=== PATIENT | male | born 1995 | race Caucasian/White ===

== ENCOUNTER 2017-05-15 20:19 | Emergency (ER) | payer BC, MEDICAID, OTHER ==
[~2017-05-15] VITALS: Ht 185.4 cm; Wt 97.5 kg
[~2017-05-15 20:19] MED LIST: OMEP20CA10 PO
[2017-05-16 01:14] VITALS: BP 120/75
== END 2017-05-16 01:21 | disposition home or self-care (01) ==
LOC: ER 20:19
DX: R06.02 Shortness of breath (principal); Z88.0 Allergy status to penicillin; Z88.1 Allergy status to other antibiotic agents
CPT/HCPCS: 71010; 93005; 99284; Z7610

== ENCOUNTER 2017-07-29 07:06 | Emergency (ER) | payer OTHER ==
[~2017-07-29] VITALS: Ht 185.4 cm; Wt 100.0 kg
[2017-07-29] MEDS ORDERED: DIPHENHYDRAMINE 50MG/ML VIAL IM ONE (09:45)
[2017-07-29] MEDS ORDERED: FAMOTIDINE 20MG TABLET PO ONE (10:00)
[2017-07-29 10:07] VITALS: BP 133/70
[2017-07-30] MEDS ORDERED: FAMOTIDINE 20MG/2ML VIAL IV SCH (09:00)
== END 2017-07-29 10:22 | disposition home or self-care (01) ==
LOC: ER 07:49
DX: T78.40XA Allergy, unspecified, initial encounter (principal); R21 Rash and other nonspecific skin eruption; R03.0 Elevated blood-pressure reading, without diagnosis of hypertension; X58.XXXA Exposure to other specified factors, initial encounter; Z88.0 Allergy status to penicillin; Z88.1 Allergy status to other antibiotic agents
CPT/HCPCS: 96372; 99283; J1200

== ENCOUNTER 2018-04-03 14:45 | Emergency (ER) | payer MEDICAID ==
[~2018-04-03] VITALS: Ht 188 cm; Wt 85.0 kg
[2018-04-03] MEDS ORDERED: IBUPROFEN 600MG TABLET PO ONE (17:45)
[2018-04-03] MEDS ORDERED: LORAZEPAM 1MG TABLET PO ONE (18:45)
[2018-04-03 20:20] VITALS: BP 113/70
== END 2018-04-03 20:22 | disposition home or self-care (01) ==
LOC: ER 15:49
DX: F41.9 Anxiety disorder, unspecified (principal); R06.00 Dyspnea, unspecified; Z88.0 Allergy status to penicillin; Z90.49 Acquired absence of other specified parts of digestive tract
CPT/HCPCS: 99283

== ENCOUNTER 2018-04-16 12:52 | Emergency (ER) | payer MEDICAID ==
[~2018-04-16] VITALS: Ht 188 cm; Wt 100.0 kg
[2018-04-16 13:53] LABS: CHLORIDE 108 mEq/L (98-107)
[2018-04-16 13:59] LABS: ETHANOL BLOOD < 10 mg/dL
[2018-04-16 14:45] LABS: BASOPHILS % 0.3 % (0.0-2.0); EOSINOPHILS % 0.5 % (0.0-5.0); HEMATOCRIT. 44.9 % (42.0-52.0); HEMOGLOBIN. 16.4 g/dL (14.0-18.0); LYMPHOCYTES % 10.4 % (20.0-50.0); MEAN CORPUSCULAR HEMOGLOBIN 27.7 pg (28.0-32.0); MEAN CORPUSCULAR VOLUME 76.1 fL (80.0-94.0); MEAN PLATELET VOLUME 8.5 fl (7.4-10.4); MONOCYTES % 7.6 % (2.0-8.0); NEUTROPHILS % 81.2 % (40.0-76.0); PLATELET 251 x1000/uL (130-400); RED CELL DISTRIBUTION WIDTH 13.7 % (11.6-14.6)
[2018-04-16 18:12] LABS: *AMPHETAMINES SCREEN URINE NEGATIVE (NEGATIVE); *BARBITURATES SCREEN URINE NEGATIVE (NEGATIVE); *BENZODIAZEPINES SCREEN URINE NEGATIVE (NEGATIVE); *COCAINE SCREEN URINE NEGATIVE (NEGATIVE); METHADONE URINE SCREEN NEGATIVE (NEGATIVE); OPIATES URINE SCREEN NEGATIVE (NEGATIVE); PHENCYCLIDINE URINE SCREEN NEGATIVE (NEGATIVE)
[2018-04-16 18:13] LABS: CANNABINOID URINE SCREEN NEGATIVE (NEGATIVE)
[2018-04-16] MEDS ORDERED: ALBUTEROL (0.083%) 2.5MG/3ML NEB HHN STA (18:55)
[2018-04-16] MEDS ORDERED: IPRATROPIUM BROMIDE (0.02%) 0.5MG/2.5ML NEB HHN STA (18:55)
[2018-04-16] MEDS ORDERED: FAMOTIDINE 20MG TABLET PO ONE (19:00)
[2018-04-16] MEDS ORDERED: KETOROLAC 30MG/ML VIAL IV ONE (20:30)
[2018-04-16] MEDS ORDERED: DEXAMETHASONE 10 MG/ML VIAL IV ONE (20:30)
[2018-04-16] MEDS ORDERED: LORAZEPAM 2MG/ML CPJ IV ONE (20:45)
[2018-04-16 22:42] VITALS: BP 130/87
== END 2018-04-16 22:44 | disposition home or self-care (01) ==
LOC: ER 13:20
DX: R06.00 Dyspnea, unspecified (principal); J35.9 Chronic disease of tonsils and adenoids, unspecified; F41.9 Anxiety disorder, unspecified; F45.8 Other somatoform disorders; K21.9 Gastro-esophageal reflux disease without esophagitis; J45.909 Unspecified asthma, uncomplicated; R09.82 Postnasal drip; Z88.0 Allergy status to penicillin; Z88.1 Allergy status to other antibiotic agents; Z79.899 Other long term (current) drug therapy
CPT/HCPCS: 36415; 70490; 71045; 80048; 80305; 85025; 93005; 94640; 96374; 96375; 99285; G0482; J1100; J1885; J2060; J7611; Z7610

== ENCOUNTER 2018-05-01 21:57 | Emergency (ER) | payer MEDICAID ==
[~2018-05-01] VITALS: Ht 177.8 cm; Wt 78.0 kg
[2018-05-02] MEDS ORDERED: HYDROXYZINE 25MG TABLET PO ONE (03:45)
[2018-05-02 05:00] VITALS: BP 115/73
== END 2018-05-02 05:20 | disposition home or self-care (01) ==
LOC: ER 21:57
DX: R06.00 Dyspnea, unspecified (principal); Z88.0 Allergy status to penicillin; Z88.3 Allergy status to other anti-infective agents
CPT/HCPCS: 93005; 99283

== ENCOUNTER 2018-05-10 00:57 | Emergency (ER) | payer MEDICAID ==
[~2018-05-10] VITALS: Ht 180.3 cm; Wt 81.6 kg
[2018-05-10 08:00] VITALS: BP 112/65
== END 2018-05-10 08:02 | disposition home or self-care (01) ==
LOC: ER 00:57
DX: T78.40XA Allergy, unspecified, initial encounter (principal); Z88.0 Allergy status to penicillin; Z88.1 Allergy status to other antibiotic agents; X58.XXXA Exposure to other specified factors, initial encounter
CPT/HCPCS: 99283

== ENCOUNTER 2019-10-12 05:14 | Emergency (ER) | payer MEDICAID ==
[~2019-10-12] VITALS: Ht 185.4 cm; Wt 129.0 kg
[~2019-10-12 05:14] MED LIST changes: -OMEP20CA10 PO; +OMEP20CA5 PO
[2019-10-12] MEDS ORDERED: SODIUM CHLORIDE 0.9% 1,000 ML IV ONE (06:34)
[2019-10-12] MEDS ORDERED: KETOROLAC 30MG/ML VIAL IV STA (06:34)
[2019-10-12 07:25] LABS: CHLORIDE 104 mEq/L (98-107)
[2019-10-12 07:29] LABS: CLARITY URINE CLEAR (CLEAR); COLOR URINE YELLOW (YELLOW); KETONES URINE NEGATIVE (NEGATIVE); LEUKOCYTE ESTERASE URINE NEGATIVE (NEGATIVE); NITRITE URINE NEGATIVE (NEGATIVE); OCCULT BLOOD URINE NEGATIVE (NEGATIVE); PH URINE 5.5 (4.5-8.0); PROTEIN URINE NEGATIVE (NEGATIVE); SPECIFIC GRAVITY URINE 1.021 (1.005-1.030); UROBILINOGEN URINE 0.2 E.U./dL (0.2-1.0)
[2019-10-12 07:34] LABS: BASOPHILS % 0.7 % (0.0-2.0); EOSINOPHILS % 4.6 % (0.0-5.0); HEMATOCRIT. 46.5 % (42.0-52.0); HEMOGLOBIN. 15.9 g/dL (14.0-18.0); MEAN CORPUSCULAR HEMOGLOBIN 26.4 pg (28.0-32.0); MEAN CORPUSCULAR VOLUME 77.2 fL (80.0-94.0); MEAN PLATELET VOLUME 8.3 fl (7.4-10.4); MONOCYTES % 10.8 % (2.0-8.0); NEUTROPHILS % 54.9 % (40.0-76.0); PLATELET 272 x1000/uL (130-400); RED BLOOD CELL COUNT 6.03 mill/uL (4.7-6.1); RED CELL DISTRIBUTION WIDTH 14.4 % (11.6-14.6)
[2019-10-12 10:43] VITALS: BP 131/81
== END 2019-10-12 10:48 | disposition home or self-care (01) ==
LOC: ER 05:14
DX: R10.9 Unspecified abdominal pain (principal); R11.0 Nausea; Z88.0 Allergy status to penicillin; Z88.1 Allergy status to other antibiotic agents; Z88.8 Allergy status to other drugs, medicaments and biological substances; Z90.49 Acquired absence of other specified parts of digestive tract
CPT/HCPCS: 36415; 74176; 80053; 81003; 83690; 85025; 96374; 99284; J1885; J7030; Z7610

== ENCOUNTER 2021-10-09 21:00 | Emergency (ER) | payer MEDICAID ==
[~2021-10-09] VITALS: Ht 185.4 cm; Wt 140.0 kg
[~2021-10-09 21:00] MED LIST changes: +OMEP20CA14 PO; -OMEP20CA5 PO
[2021-10-09 21:56] VITALS: BP 122/71
[2021-10-09 23:23] LABS: CHLORIDE 111 mEq/L (98-107)
[2021-10-09 23:26] LABS: BASOPHILS % 0.7 % (0.0-2.0); EOSINOPHILS % 2.4 % (0.0-5.0); HEMATOCRIT. 44.5 % (42.0-52.0); HEMOGLOBIN. 15.3 g/dL (14.0-18.0); LYMPHOCYTES % 32.4 % (20.0-50.0); MEAN CORPUSCULAR HEMOGLOBIN 26.3 pg (28.0-32.0); MEAN CORPUSCULAR VOLUME 76.4 fL (80.0-94.0); MEAN PLATELET VOLUME 7.7 fl (7.4-10.4); MONOCYTES % 10.4 % (2.0-8.0); NEUTROPHILS % 54.1 % (40.0-76.0); PLATELET 328 x1000/uL (130-400); RED BLOOD CELL COUNT 5.82 mill/uL (4.7-6.1)
== END 2021-10-10 00:32 | disposition home or self-care (01) ==
LOC: ER 21:00
DX: R07.89 Other chest pain (principal)
CPT/HCPCS: 36415; 71045; 80053; 83880; 84484; 85025; 93005; 99285

== ENCOUNTER 2021-10-28 08:36 | Emergency (ER) | payer MEDICAID ==
[~2021-10-28] VITALS: Ht 185.4 cm; Wt 109.0 kg
[2021-10-28] MEDS ORDERED: IBUPROFEN 600MG TABLET PO ONE (09:00)
[2021-10-28 09:36] VITALS: BP 143/81
[2021-10-28] MEDS ORDERED: BENZ-16 MT (09:53)
[2021-10-28] MEDS ORDERED: IBUP-2029 MT (09:53)
[2021-10-28] MEDS ORDERED: ALBU6.7H9 INH (09:53)
== END 2021-10-28 10:17 | disposition home or self-care (01) ==
LOC: ER 08:50
DX: B34.9 Viral infection, unspecified (principal); I10 Essential (primary) hypertension; Z13.9 Encounter for screening, unspecified; Z88.0 Allergy status to penicillin; Z20.822 Contact with and (suspected) exposure to COVID-19
CPT/HCPCS: 71045; 87426; 87804; 99284

== ENCOUNTER 2021-11-18 16:57 | Emergency (ER) | payer MEDICAID, OTHER ==
[~2021-11-18] VITALS: Ht 190.5 cm; Wt 120.0 kg
[~2021-11-18 16:57] MED LIST changes: +ALBU6.7H9 INH; +BENZ-16 MT; +IBUP-2029 MT
[2021-11-18 19:02] VITALS: BP 156/92
== END 2021-11-18 19:27 | disposition home or self-care (01) ==
LOC: ER 16:57
DX: G47.30 Sleep apnea, unspecified (principal); I49.9 Cardiac arrhythmia, unspecified; Z88.0 Allergy status to penicillin; Z98.890 Other specified postprocedural states
CPT/HCPCS: 71045; 93005; 99283

== ENCOUNTER 2021-11-29 19:21 | Emergency (ER) | payer OTHER ==
[~2021-11-29] VITALS: Ht 185.4 cm; Wt 97.5 kg
[2021-11-29 20:46] LABS: BASOPHILS % 0.3 % (0.0-2.0); EOSINOPHILS % 0.6 % (0.0-5.0); HEMATOCRIT. 48.8 % (42.0-52.0); HEMOGLOBIN. 17.6 g/dL (14.0-18.0); LYMPHOCYTES % 20.4 % (20.0-50.0); MEAN CORPUSCULAR HEMOGLOBIN 27.2 pg (28.0-32.0); MEAN CORPUSCULAR VOLUME 75.5 fL (80.0-94.0); MONOCYTES % 9.2 % (2.0-8.0); NEUTROPHILS % 69.5 % (40.0-76.0); PLATELET 294 x1000/uL (130-400); RED BLOOD CELL COUNT 6.47 mill/uL (4.7-6.1); RED CELL DISTRIBUTION WIDTH 14.6 % (11.6-14.6)
[2021-11-29 20:52] LABS: CHLORIDE 105 mEq/L (98-107)
[2021-11-29] MEDS ORDERED: LORAZEPAM 1MG TABLET PO ONE (21:00)
[2021-11-29 22:35] VITALS: BP 143/96
== END 2021-11-29 22:49 | disposition home or self-care (01) ==
LOC: ER 19:21
DX: R06.02 Shortness of breath (principal); F41.9 Anxiety disorder, unspecified; Z20.822 Contact with and (suspected) exposure to COVID-19; Z88.0 Allergy status to penicillin; Z90.49 Acquired absence of other specified parts of digestive tract
CPT/HCPCS: 36415; 71045; 80053; 84484; 85025; 87426; 93005; 99285

== ENCOUNTER 2022-10-19 19:39 | Emergency (ER) | payer MEDICAID, OTHER ==
[~2022-10-19] VITALS: Ht 185.4 cm; Wt 118.0 kg
[~2022-10-19 19:39] MED LIST changes: +ALBU6.7H3 INH; -ALBU6.7H9 INH
[2022-10-19 19:51] VITALS: BP 147/88
[2022-10-19] MEDS: BACITRACIN ZINC OINT UDPKT TOP ONE (22:15)
[2022-10-19] MEDS: ACETAMINOPHEN 325MG TABLET PO ONE (22:15)
[2022-10-19] MEDS: TETANUS, DIPHTHERIA, PERTUSSIS VAC/PF 0.5ML (>10YR OLD) IM ONE (22:15)
== END 2022-10-20 00:22 | disposition home or self-care (01) ==
LOC: ER 20:18
DX: S09.8XXA Other specified injuries of head, initial encounter (principal); W18.39XA Other fall on same level, initial encounter; Y93.89 Activity, other specified; Y92.89 Other specified places as the place of occurrence of the external cause; Y99.8 Other external cause status; F41.9 Anxiety disorder, unspecified; J45.909 Unspecified asthma, uncomplicated; Z90.49 Acquired absence of other specified parts of digestive tract; Z88.0 Allergy status to penicillin
CPT/HCPCS: 70450; 73130; 73560; 90471; 90715; 99284; Z7610

== ENCOUNTER 2023-04-21 01:03 | Emergency (ER) | payer MEDICAID, OTHER ==
[~2023-04-21] VITALS: Ht 185.4 cm; Wt 115.0 kg
[2023-04-21 01:51] VITALS: BP 104/71
[2023-04-21] MEDS ORDERED: SULF1TAB48 MT (08:44)
== END 2023-04-21 09:34 | disposition home or self-care (01) ==
LOC: ER 01:03
DX: L60.0 Ingrowing nail (principal); B35.1 Tinea unguium; J45.909 Unspecified asthma, uncomplicated; Z88.0 Allergy status to penicillin; Z98.890 Other specified postprocedural states; Z90.49 Acquired absence of other specified parts of digestive tract
CPT/HCPCS: 99283

== ENCOUNTER 2023-07-05 01:26 | Emergency (ER) | payer MEDICAID, OTHER ==
[~2023-07-05] VITALS: Ht 185.4 cm; Wt 113.7 kg
[~2023-07-05 01:26] MED LIST changes: +SULF1TAB48 MT
[2023-07-05 01:32] VITALS: BP 116/69; PULSE 80; TEMP 97.9; O2SAT 100
[2023-07-05 01:57] LABS: CLARITY URINE CLEAR (CLEAR); COLOR URINE YELLOW (YELLOW); GLUCOSE URINE NEGATIVE (NEGATIVE); KETONES URINE NEGATIVE (NEGATIVE); LEUKOCYTE ESTERASE URINE NEGATIVE (NEGATIVE); NITRITE URINE NEGATIVE (NEGATIVE); OCCULT BLOOD URINE NEGATIVE (NEGATIVE); PROTEIN URINE NEGATIVE (NEGATIVE); SPECIFIC GRAVITY URINE 1.009 (1.005-1.030); UROBILINOGEN URINE 0.2 E.U./dL (0.2-1.0)
[2023-07-05 02:27] LABS: BASOPHILS % 0.7 % (0.0-2.0); DIFFERENTIAL COMMENT 0; EOSINOPHILS % 2.1 % (0.0-5.0); HEMATOCRIT. 46.9 % (42.0-52.0); HEMOGLOBIN. 16.1 g/dL (14.0-18.0); LYMPHOCYTES % 39.9 % (20.0-50.0); MEAN CORPUSCULAR HEMOGLOBIN 26.7 pg (28.0-32.0); MEAN CORPUSCULAR HGB CONC 34.4 g/dL (31.0-37.0); MEAN CORPUSCULAR VOLUME 77.6 fL (80.0-94.0); MEAN PLATELET VOLUME 8.5 fl (7.4-10.4); MONOCYTES % 8.3 % (2.0-8.0); PLATELET 230 x1000/uL (130-400); RED BLOOD CELL COUNT 6.05 mill/uL (4.7-6.1); RED CELL DISTRIBUTION WIDTH 14.5 % (11.6-14.6)
[2023-07-05 02:32] LABS: CHLORIDE 106 mEq/L (98-107); INDEX HEMOLYSI 1 (1-3); INDEX ICTERIC 1 (1-4); INDEX LIPEMIC 1 (1-3); POTASSIUM 3.6 mEq/L (3.5-5.1); SODIUM 137 mEq/L (136-145)
[2023-07-05 02:34] LABS: INR 1.1; PARTIAL THROMBOPLASTIN TIME 29.4 sec (23.4-31.0); PROTHROMBIN TIME 11.4 sec (9.6-11.0)
[2023-07-05] MEDS ORDERED: MONT4GRA14 MT (02:34)
[2023-07-05 02:42] LABS: ALANINE AMINOTRANSFERASE 20 IU/L (13-61); ALBUMIN 3.8 g/dL (3.4-5.0); ASPARTATE AMINOTRANSFERASE 10 IU/L (15-37); BILIRUBIN TOTAL 0.4 mg/dL (0.1-1.0); CALCIUM 8.8 mg/dL (8.5-10.1); CARBON DIOXIDE 27 mEq/L (21-32); CREATININE 0.8 mg/dL (0.6-1.3); GLUCOSE 92 mg/dL (70-105); PROTEIN TOTAL 8.4 g/dL (6.0-8.3); TROPONIN I HIGH SENSITIVITY 4 ng/L (<78); UREA NITROGEN BLOOD 10 mg/dL (7-21)
== END 2023-07-05 02:47 | disposition home or self-care (01) ==
LOC: ER 01:46
DX: J06.9 Acute upper respiratory infection, unspecified (principal); J45.909 Unspecified asthma, uncomplicated; Z88.0 Allergy status to penicillin; Z88.1 Allergy status to other antibiotic agents; Z90.49 Acquired absence of other specified parts of digestive tract
CPT/HCPCS: 36415; 71045; 80053; 81003; 84484; 85025; 93005; 99285

== ENCOUNTER 2023-07-08 02:42 | Emergency (ER) | payer OTHER ==
[~2023-07-08] VITALS: Ht 185.4 cm; Wt 112.0 kg
[~2023-07-08 02:42] MED LIST changes: +MONT4GRA14 MT
[2023-07-08 03:57] VITALS: O2SAT 99
[2023-07-08] MEDS ORDERED: IBUPROFEN 400MG TABLET PO ONE (07:00)
[2023-07-08] MEDS ORDERED: ACETAMINOPHEN 325MG TABLET PO ONE (07:00)
[2023-07-08 07:21] VITALS: BP 116/76; PULSE 88; RESP 15; TEMP 97.6
== END 2023-07-08 09:12 | disposition home or self-care (01) ==
LOC: ER 02:42
DX: R06.02 Shortness of breath (principal); F41.9 Anxiety disorder, unspecified; Z98.890 Other specified postprocedural states; Z79.899 Other long term (current) drug therapy; Z20.822 Contact with and (suspected) exposure to COVID-19; W18.39XA Other fall on same level, initial encounter; Y93.89 Activity, other specified; Y92.89 Other specified places as the place of occurrence of the external cause; Y99.8 Other external cause status
CPT/HCPCS: 99284; 71046; 87426; C9803

== ENCOUNTER 2024-04-30 12:11 | Emergency (ER) | payer MEDICAID, OTHER ==
[~2024-04-30] VITALS: Ht 182.9 cm; Wt 95.0 kg
[2024-04-30 12:19] VITALS: O2SAT 97
[2024-04-30 14:03] VITALS: BP 121/59; PULSE 86; RESP 20; TEMP 98.2
== END 2024-04-30 14:03 | disposition home or self-care (01) ==
LOC: ER 12:58
DX: R42 Dizziness and giddiness (principal); R51.9 Headache, unspecified; Z88.0 Allergy status to penicillin; Z79.899 Other long term (current) drug therapy; Z90.49 Acquired absence of other specified parts of digestive tract; Z98.890 Other specified postprocedural states
CPT/HCPCS: 99284